=== PATIENT | female | born 1975 | race Caucasian/White ===

== ENCOUNTER 2019-04-29 10:11 | Emergency (ER) | payer OTHER ==
[~2019-04-29] VITALS: Ht 167.6 cm; Wt 62.1 kg
[2019-04-29 10:25] VITALS: BP 109/68
--- NOTE | 2019-04-29 10:26 | NUR ---
ED Nurse Note: pt walked in due to right shoulder pain, pt denies fall,pt admits of having a boxing training this week and the pain started yesterday.
[2019-04-29] MEDS ORDERED: NKM (10:28)
[2019-04-29] MEDS ORDERED: Methocarbamol 750mg tab ORAL ONE (10:45)
--- NOTE | 2019-04-29 10:50 | NUR ---
ED Nurse Note: pt medicated as ordered. pt able to tolerate well. pt went to xray with tech
--- NOTE | 2019-04-29 10:56 | Emergency Room Report ---
History of Present Illness General Chief Complaint: Pain Source: Patient Present Illness HPI Patient reports increased right shoulder pain reports that yesterday while performing workout and boxing she had some discomfort Today she felt increased discomfort with any movement Denies any headache denies any chest pain Denies any other fall pain is worse with movement of the right shoulder Mainly describes pain to the lateral aspect and also posterior aspect Allergies: Coded Allergies: Dust (Verified Allergy, Unknown, 04/29/19) Uncoded Allergies: DOGS (Allergy, Unknown, 04/29/19) Patient History Past Medical History: see triage record Last Menstrual Period: 04/08/19 Now: No : 1 Para: 1 Reviewed Nursing Documentation: PMH: Agreed; PSxH: Agreed Nursing Documentation-PMH Past Medical History: No Stated History Review of Systems All Other Systems: negative except mentioned in HPI Physical Exam Vital Signs Date Time Temp Pulse Resp B/P (MAP) Pulse Ox O2 Delivery O2 Flow Rate FiO2 04/29/19 10:12 97.3 88 16 109/68 (82) 98 Room Air Sp02 EP Interpretation: reviewed, normal General Appearance: well appearing, no apparent distress Head: normocephalic, atraumatic Eyes: bilateral eye PERRL, bilateral eye EOMI ENT: hearing grossly normal, normal pharynx Neck: supple Respiratory: lungs clear Cardiovascular #1: regular rate, rhythm, no edema Gastrointestinal: non tender, soft Musculoskeletal: swelling - Noted to the right shoulder compared to the left patient also has increased discomfort with, abduction and flexion of the right shoulder. 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 Skin: no rash Lymphatic: no adenopathy Procedures Splinting Splinting : Consent: Verbal Location: right shoulder Pre-Made Type: shoulder sling Hand-Made Type: Pre-Proc Neuro Vasc Exam: normal Post-Proc Neuro Vasc Exam: normal Patient Tolerated: Well Complications: None Medical Decision Making Diagnostic Impression: Primary Impression: Shoulder sprain ER Course Given the patient's history and presentation x-ray imaging is obtained no obvious acute fracture is seen however there is some calcification on the right side raising question of rotator cuff injury This was discussed with the patient she was placed into a shoulder sling and requires close follow-up with likely MRI for further imaging Other X-Ray Diagnostic Results Other X-Ray Diagnostic Results : X-Ray ordered: right shoulder # of Views/Limited Vs Complete: 3 View Indication: Pain EP Interpretation: Yes Interpretation: no dislocation, no soft tissue swelling, no fractures, other - Questionable calcification possibly related to rotator cuff Impression: Other - Questionable calcification related to possible rotator cuff injury Electronically Signed by: Vita Rivera DO Last Vital Signs Date Time Temp Pulse Resp B/P (MAP) Pulse Ox O2 Delivery O2 Flow Rate FiO2 04/29/19 10:25 97.3 88 16 109/68 98 Room Air Status: improved Disposition: HOME, SELF-CARE Condition: Improved Scripts Methocarbamol* (ROBAXIN-750*) 750 Mg Tablet 750 MG PO TID, #21 TAB 0 Refills Prov: Vita Rivera DO 04/29/19 Ibuprofen* (MOTRIN*) 600 Mg Tablet 600 MG ORAL Q8H PRN for For Pain, #20 TAB 0 Refills Prov: Vita Rivera DO 04/29/19 Additional Instructions: Patient is provided with the discharge instructions notified to follow up with primary doctor in the next 2-3 days otherwise return to the er with any worsening symptoms. Please note that this report is being documented using [employer] technology. This can lead to erroneous entry secondary to incorrect interpretation by the dictating instrument. Vita Rivera DO Apr 29, 2019 10:56
--- NOTE | 2019-04-29 11:20 | Diagnostic Imaging Report ---
EXAM: XR Right Shoulder Complete, 2 or More Views CLINICAL HISTORY: TRAUMA TECHNIQUE: Two or more views of the right shoulder. COMPARISON: No relevant prior studies available. FINDINGS: Bones/joints: No visible fracture or dislocation. The right acromioclavicular and glenohumeral joints are anatomically aligned. The right clavicle, scapula, and proximal humerus appear intact. Coracoclavicular and subacromial spaces remain within normal limits. Soft tissues: 6 x 3 mm density inferior to the right glenohumeral joint is nonspecific, and may represent soft tissue calcification in the rotator cuff. . IMPRESSION: 1. No visible fracture or dislocation. 2. 6 x 3 mm density inferior to the right glenohumeral joint is nonspecific, and may represent soft tissue calcification in the rotator cuff.
[2019-04-29] MEDS ORDERED: IBUPROFEN600 MG ORAL (11:54)
[2019-04-29] MEDS ORDERED: ROBAXIN-750750 MG PO (11:54)
[2019-04-29 12:07] VITALS: BP 109/68
--- NOTE | 2019-04-29 12:07 | NUR ---
ER DISCHARGE NOTE: Patient is cleared to be discharged per ERMD, pt is aox4, on room air, with stable vital signs. pt was given dc and prescription instructions, pt was able to verbalize understanding, pt id band removed without complications. pt is able to ambulate with steady gait. pt took all belongings.
== END 2019-04-29 12:07 | disposition home or self-care (01) ==
LOC: EMR 11:50
DX: S43.401A Unspecified sprain of right shoulder joint, initial encounter (principal); Y93.71 Activity, boxing; Y92.9 Unspecified place or not applicable; Z91.048 Other nonmedicinal substance allergy status
CPT/HCPCS: 99283